=== PATIENT | female | born 1995 | race Two or more races ===

== ENCOUNTER 2022-12-29 13:51 | Outpatient (CLI) | payer OTHER | END 2022-12-29 15:14 | disposition home or self-care (01) | LOC: PRENATAL 13:51 | PROVIDERS: ATTEND Obstetrics & Gynecology Maternal & Fetal Medicine | DX: Z76.1 Encounter for health supervision and care of foundling (principal) ==

== ENCOUNTER 2023-04-19 06:39 | Emergency (ER) | payer OTHER ==
[~2023-04-19] VITALS: Ht 170.2 cm; Wt 68.0 kg
[2023-04-19] MEDS ORDERED: PRENATABS FA T1 EACH (07:10)
[2023-04-19] MEDS ORDERED: ENDOMETRIN100 MG (07:10)
== END 2023-04-19 10:35 | disposition home or self-care (01) ==
LOC: ER 06:39
DX: O20.8 Other hemorrhage in early pregnancy (principal); Z3A.13 13 weeks gestation of pregnancy; O20.9 Hemorrhage in early pregnancy, unspecified; Z91.040 Latex allergy status

== ENCOUNTER 2023-04-29 13:53 | Emergency (ER) | payer OTHER ==
[~2023-04-29] VITALS: Ht 170.2 cm; Wt 68.0 kg
[~2023-04-29 13:53] MED LIST: ENDOMETRIN100 MG; PRENATABS FA T1 EACH
== END 2023-04-29 18:04 | disposition home or self-care (01) ==
LOC: ER 13:53
DX: O20.8 Other hemorrhage in early pregnancy (principal); Z3A.09 9 weeks gestation of pregnancy

== ENCOUNTER 2023-05-26 09:53 | Outpatient (CLI) | payer OTHER | END 2023-05-26 12:45 | disposition home or self-care (01) | LOC: PRENATAL 09:53 | PROVIDERS: ATTEND Obstetrics & Gynecology Maternal & Fetal Medicine | DX: O36.80X0 Pregnancy with inconclusive fetal viability, not applicable or unspecified (principal); Z36.82 Encounter for antenatal screening for nuchal translucency; Z36.9 Encounter for antenatal screening, unspecified; O09.819 Supervision of pregnancy resulting from assisted reproductive technology, unspecified trimester; Z14.8 Genetic carrier of other disease; Z3A.12 12 weeks gestation of pregnancy ==

== ENCOUNTER 2023-07-12 14:03 | Outpatient (CLI) | payer OTHER | END 2023-07-12 14:04 | disposition home or self-care (01) | LOC: PRENATAL 14:03 | PROVIDERS: ATTEND Obstetrics & Gynecology Maternal & Fetal Medicine | DX: O35.3XX0 Maternal care for (suspected) damage to fetus from viral disease in mother, not applicable or unspecified (principal); O09.819 Supervision of pregnancy resulting from assisted reproductive technology, unspecified trimester; O44.00 Complete placenta previa NOS or without hemorrhage, unspecified trimester; Z3A.19 19 weeks gestation of pregnancy ==

== ENCOUNTER 2023-10-11 13:53 | Outpatient (CLI) | payer OTHER | END 2023-10-11 13:54 | disposition home or self-care (01) | LOC: PRENATAL 13:53 | PROVIDERS: ATTEND Obstetrics & Gynecology Maternal & Fetal Medicine | DX: O26.849 Uterine size-date discrepancy, unspecified trimester (principal); O36.8199 Decreased fetal movements, unspecified trimester, other fetus; O99.019 Anemia complicating pregnancy, unspecified trimester; Z3A.32 32 weeks gestation of pregnancy ==

== ENCOUNTER 2023-11-16 03:07 | Inpatient (IN) | payer OTHER ==
[~2023-11-16] VITALS: Ht 170.2 cm; Wt 84.8 kg
[2023-11-16] MEDS ORDERED: IRON240 MG PO (03:24)
[2023-11-16] MEDS ORDERED: RINGERS SOLUTION,LACTATED 1,000 ML IV SCH (03:30)
[2023-11-16 04:39] LABS: HEMATOCRIT 35.4 % (36.0-45.00); MEAN CELL VOLUME 73.2 fL (80.00-100.00); MEAN CORPUSCULAR HEMOGLOBIN 23.8 pg (27.00-32.0); MEAN CORPUSCULAR HGB CONC 32.5 g/dl (32.0-36.0); RED BLOOD COUNT 4.83 M/uL (4.00-6.00)
[2023-11-16 04:40] LABS: RED CELL DISTRIBUTION WIDTH 28.8 % (11.5-14.5)
[2023-11-16 04:41] LABS: HEMOGLOBIN 11.5 g/dL (12.0-15.00); PLATELET COUNT 152 K/uL (150-450)
[2023-11-16 04:50] LABS: INR < 0.93; PARTIAL THROMBOPLASTIN TIME 28.2 SECONDS (22.0-34.0); PROTHROMBIN TIME 9.7 SECONDS (9.0-11.5)
[2023-11-16] MEDS ORDERED: ERYTHROMYCIN BASE 3.5 GM OINT...G. OP ONE (06:44)
[2023-11-16] MEDS ORDERED: OXYTOCIN 10 UNITS/ML VIAL ONE ×2 (06:44→11:34)
[2023-11-16] MEDS ORDERED: MEPERIDINE HCL/PF 50 MG/ML VIAL IM PRN (07:30)
[2023-11-16] MEDS ORDERED: OXYTOCIN 1,000 ML IV SCH (07:30)
[2023-11-16] MEDS ORDERED: OXYTOCIN 10 UNITS/ML VIAL IV SCH (08:00)
[2023-11-16] MEDS ORDERED: ERYTHROMYCIN BASE 1 GM TUBE OP SCH (08:00)
[2023-11-16] MEDS ORDERED: FERROUS SULFAT325 MG (08:10)
[2023-11-16] MEDS ORDERED: PROMETHAZINE HCL 25 MG/ML AMPUL ONE (08:57)
[2023-11-16] MEDS ORDERED: PROMETHAZINE HCL 25 MG/ML AMPUL IM SCH (09:00)
[2023-11-16 10:00] LABS: HEMATOCRIT 33.6 % (36.0-45.00); HEMOGLOBIN 10.9 g/dL (12.0-15.00); MEAN CELL VOLUME 73.6 fL (80.00-100.00); MEAN CORPUSCULAR HGB CONC 32.6 g/dl (32.0-36.0); PLATELET COUNT 156 K/uL (150-450); RED BLOOD COUNT 4.56 M/uL (4.00-6.00)
[2023-11-16 10:04] LABS: RED CELL DISTRIBUTION WIDTH 28.4 % (11.5-14.5)
[2023-11-16] MEDS ORDERED: OXYTOCIN 1,000 ML IV ONE (16:15)
[2023-11-17] MEDS ORDERED: OxyCODONE HCL/APAP UD (PERCOCET) PO PRN (10:00)
== END 2023-11-19 16:22 | disposition home or self-care (01) | DRG 788 ==
LOC: OBS/DEL 03:07 → OB/GYN 05:44 → LDR 05:44 → O/R 07:14 → OB/GYN 08:42
PROVIDERS: ADMIT Obstetrics & Gynecology Obstetrics; ATTEND Obstetrics & Gynecology Obstetrics
PROC: 10D00Z1 Extraction of Products of Conception, Low, Open Approach (ICD-10-PCS; principal; 2023-11-19)
PROC: 4A1HXCZ Monitoring of Products of Conception, Cardiac Rate, External Approach (ICD-10-PCS; 2023-11-19)
DX: O45.8X3 Other premature separation of placenta, third trimester (principal); O67.8 Other intrapartum hemorrhage; Z3A.37 37 weeks gestation of pregnancy; Z37.0 Single live birth; Z20.822 Contact with and (suspected) exposure to COVID-19

== ENCOUNTER 2024-12-23 21:14 | Emergency (ER) | payer OTHER ==
[~2024-12-23] VITALS: Ht 170.2 cm; Wt 60.3 kg
[~2024-12-23 21:14] MED LIST changes: +FERROUS SULFAT325 MG; +IRON240 MG PO
[2024-12-23] MEDS ORDERED: 0.9 % SODIUM CHLORIDE 1,000 ML IV STA (23:29)
[2024-12-24 00:20] LABS: HEMATOCRIT 38.8 % (36.0-45.00); HEMOGLOBIN 13.1 g/dL (12.0-15.00); MEAN CELL VOLUME 78.1 fL (80.00-100.00); MEAN CORPUSCULAR HEMOGLOBIN 26.3 pg (27.00-32.0); MEAN CORPUSCULAR HGB CONC 33.7 g/dl (32.0-36.0); PLATELET COUNT 247 K/uL (150-450); RED BLOOD COUNT 4.98 M/uL (4.00-6.00); RED CELL DISTRIBUTION WIDTH 15.3 % (11.5-14.5)
[2024-12-24 00:40] LABS: INR 0.95; PARTIAL THROMBOPLASTIN TIME 24.8 SECONDS (22.0-34.0); PROTHROMBIN TIME 10.4 SECONDS (9.0-11.5)
[2024-12-24 00:58] LABS: BILIRUBIN TOTAL 0.3 mg/dL (0.3-1.2); CALCIUM 9.1 mg/dL (8.5-10.1); CREATININE SERUM 0.6 mg/dL (0.55-1.02); GFR 119.04; GLOBULINA 3.3 G/DL (2.4-3.5); POTASSIUM 4.11 mEq/L (3.5-5.1); TOTAL PROTEIN 7.3 gm/dL (6.4-8.2)
[2024-12-24] MEDS ORDERED: PRENATABS FA T1 EACH PO (02:36)
== END 2024-12-24 02:44 | disposition home or self-care (01) ==
LOC: ER 21:16
DX: O20.0 Threatened abortion (principal); Z91.040 Latex allergy status; Z3A.11 11 weeks gestation of pregnancy

== ENCOUNTER 2024-12-27 04:34 | Emergency (ER) | payer OTHER ==
[~2024-12-27] VITALS: Ht 170.2 cm; Wt 63.0 kg
[~2024-12-27 04:34] MED LIST changes: +PRENATABS FA T1 EACH PO
[2024-12-27] MEDS ORDERED: PROMETHAZINE HCL 50 MG/ML AMPUL IM STA (05:19)
[2024-12-27] MEDS ORDERED: FAMOTIDINE/PF 20 MG/2 ML VIAL IV PUSH STA (05:22)
[2024-12-27] MEDS ORDERED: LACTOBACILLUS ACIDOPHILUS 1 CAP CAP PO STA (05:22)
[2024-12-27] MEDS ORDERED: PROMETHAZINE HCL 50 MG/ML AMPUL IM ONE (05:23)
[2024-12-27] MEDS ORDERED: LACTOBACILLUS ACIDOPHILUS 1 CAP CAP PO ONE (05:24)
[2024-12-27] MEDS ORDERED: FAMOTIDINE/PF 20 MG/2 ML VIAL ONE (05:24)
[2024-12-27] MEDS ORDERED: DEXTROSE 5 % AND 0.9 % NACL 1,000 ML IV ONE (05:30)
[2024-12-27 06:22] LABS: HEMATOCRIT 38.6 % (36.0-45.00); HEMOGLOBIN 13.3 g/dL (12.0-15.00); MEAN CELL VOLUME 77.1 fL (80.00-100.00); MEAN CORPUSCULAR HEMOGLOBIN 26.6 pg (27.00-32.0); MEAN CORPUSCULAR HGB CONC 34.5 g/dl (32.0-36.0); PLATELET COUNT 214 K/uL (150-450); RED BLOOD COUNT 5.01 M/uL (4.00-6.00); RED CELL DISTRIBUTION WIDTH 15.2 % (11.5-14.5)
[2024-12-27 06:49] LABS: CREATININE SERUM 0.69 mg/dL (0.55-1.02); GFR 101.3; POTASSIUM 3.93 mEq/L (3.5-5.1)
[2024-12-27] MEDS ORDERED: ONDANSETRON ODT8 MG PO (09:29)
[2024-12-27] MEDS ORDERED: PEPCID AC20 MG PO (09:29)
== END 2024-12-27 09:45 | disposition home or self-care (01) ==
LOC: ER 04:35
PROVIDERS: General Practice
DX: O99.611 Diseases of the digestive system complicating pregnancy, first trimester (principal); K92.89 Other specified diseases of the digestive system; R19.7 Diarrhea, unspecified; O21.9 Vomiting of pregnancy, unspecified; Z3A.11 11 weeks gestation of pregnancy; Z91.040 Latex allergy status

== ENCOUNTER 2025-01-09 11:01 | Outpatient (CLI) | payer OTHER ==
[~2025-01-09 11:01] MED LIST changes: +ONDANSETRON ODT8 MG PO; +PEPCID AC20 MG PO
== END 2025-01-09 11:02 | disposition home or self-care (01) ==
LOC: PRENATAL 11:01
PROVIDERS: ATTEND Obstetrics & Gynecology Maternal & Fetal Medicine
DX: O36.80X0 Pregnancy with inconclusive fetal viability, not applicable or unspecified (principal); Z36.82 Encounter for antenatal screening for nuchal translucency; O34.219 Maternal care for unspecified type scar from previous cesarean delivery; O34.00 Maternal care for unspecified congenital malformation of uterus, unspecified trimester; Z3A.13 13 weeks gestation of pregnancy

== ENCOUNTER → 2025-02-20 08:28 | Outpatient (CLI) | payer OTHER | END | disposition home or self-care (01) | LOC: PRENATAL 08:28 | PROVIDERS: ATTEND Obstetrics & Gynecology Maternal & Fetal Medicine | DX: O44.00 Complete placenta previa NOS or without hemorrhage, unspecified trimester (principal); O34.219 Maternal care for unspecified type scar from previous cesarean delivery; O34.00 Maternal care for unspecified congenital malformation of uterus, unspecified trimester; O43.90 Unspecified placental disorder, unspecified trimester; Z14.8 Genetic carrier of other disease; Z3A.19 19 weeks gestation of pregnancy ==

== ENCOUNTER 2025-06-01 11:46 | Outpatient (CLI) | payer OTHER | END 2025-06-01 11:47 | disposition home or self-care (01) | LOC: PRENATAL 11:46 | PROVIDERS: ATTEND Obstetrics & Gynecology Maternal & Fetal Medicine | DX: O26.849 Uterine size-date discrepancy, unspecified trimester (principal); O36.8130 Decreased fetal movements, third trimester, not applicable or unspecified; O34.219 Maternal care for unspecified type scar from previous cesarean delivery; O34.00 Maternal care for unspecified congenital malformation of uterus, unspecified trimester; O43.90 Unspecified placental disorder, unspecified trimester; Z14.8 Genetic carrier of other disease; O99.019 Anemia complicating pregnancy, unspecified trimester; Z3A.34 34 weeks gestation of pregnancy ==

== ENCOUNTER 2025-06-26 20:58 | Inpatient (IN) | payer OTHER ==
[~2025-06-26] VITALS: Ht 152.4 cm; Wt 3.2 kg
[2025-06-26] MEDS ORDERED: OXYTOCIN 10 UNITS/ML VIAL ONE (21:09)
[2025-06-26] MEDS ORDERED: ERYTHROMYCIN BASE OPHT 1GM EACH TUBE OP ONE (21:09)
[2025-06-26 21:30] VITALS: BP 120/81
[2025-06-26] MEDS ORDERED: CEFAZOLIN SODIUM 1,000 MG VIAL ONE (21:45)
[2025-06-26 23:26] LABS: URINE APPEARANCE Clear; URINE BILIRRUBIN Negative (NEGATIVE); URINE BLOOD Negative; URINE COLOR Yellow; URINE GLUCOSE Negative (NEGATIVE); URINE KETONE Negative (NEGATIVE); URINE LEUKOCYTE Negative; URINE NITRATE Negative; URINE PROTEIN Negative (NEGATIVE); URINE UROBILINOGEN 0.2 E.U./dl
[2025-06-26 23:28] LABS: URINE BACTERIA 832.8 uL (0.0-1933); URINE EPITHELIAL CELLS 25.6 uL (0.0-38.8); URINE RBC 5.2 uL (0.0-20.8); URINE WBC 17.3 uL (0.0-23.2)
[2025-06-26 23:41] LABS: URINE CAST 0.14 uL (0.0-1.40)
[2025-06-26] MEDS ORDERED: OXYTOCIN 1,000 ML IV SCH (23:45)
[2025-06-26] MEDS ORDERED: RINGERS SOLUTION,LACTATED 1,000 ML IV SCH (23:45)
[2025-06-26] MEDS ORDERED: MORPHINE SULFATE 4 MG/ML CARTRIDGE IV PRN (23:45)
[2025-06-26] MEDS ORDERED: KETOROLAC TROMETHAMINE 30 MG VIAL IV NR (23:45)
[2025-06-26] MEDS ORDERED: CEFAZOLIN SODIUM 1,000 MG VIAL IV SCH (23:45)
[2025-06-26] MEDS ORDERED: ONDANSETRON HCL 2 MG/ML VIAL IV PRN (23:45)
[2025-06-26] MEDS ORDERED: PRENATA CHEWAB1 EACH PO (23:52)
[2025-06-26] MEDS ORDERED: VITAMIN C100 MG PO (23:52)
[2025-06-26] MEDS ORDERED: IRON236 MG (23:53)
[2025-06-27] MEDS ORDERED: KETOROLAC TROMETHAMINE 30 MG VIAL IV SCH
[2025-06-27 00:05] LABS: BASO % 0.3 % (0.1-1.2); EOS # 0.09 (0.04-0.54); EOS % 1.0 % (0.7-7.0); LYMPH # 1.84 (1.18-3.74); LYMPH % 20.2 % (19.3-53.1); MEAN PLATELET VOLUME 11.90 fl (9.4-12.4); MONO # 0.63 (0.24-0.82); MONO % 6.9 % (4.7-12.5); NEUT # 6.44 (1.56-6.13); NEUT % 70.9 % (34.0-71.1); RED CELL DISTRIBUTION WIDTH 19.7 % (11.6-14.4)
[2025-06-27 00:33] LABS: ALT/SGPT 18.0 U/L (12-78); AST/SGOT 17.0 U/L (15-37); BILIRUBIN TOTAL 0.22 mg/dL (0.3-1.2); BUN CREA RATIO 12.0 (7.0-25.0); CREATININE SERUM 0.6 mg/dL (0.55-1.02); GFR 119.04; GLOBULINA 3.8 G/DL (2.4-3.5); LDH 196.0 U/L (84-246); OSMOLALITY SERUM 275.0 MOSM/KG (275-295)
[2025-06-27 00:35] LABS: GLUCOSE FASTING 62.0 mg/dL (65-100)
[2025-06-27 01:28] LABS: INR < 0.93
[2025-06-27] MEDS ORDERED: OXYTOCIN 10 UNITS/ML VIAL ONE (01:40)
[2025-06-27 01:55] VITALS: BP 109/71
[2025-06-27 02:57] LABS: BASO % 0.3 % (0.1-1.2); EOS # 0.06 (0.04-0.54); EOS % 0.6 % (0.7-7.0); LYMPH # 1.33 (1.18-3.74); LYMPH % 12.5 % (19.3-53.1); MEAN PLATELET VOLUME 10.70 fl (9.4-12.4); MONO # 0.54 (0.24-0.82); MONO % 5.1 % (4.7-12.5); NEUT # 8.62 (1.56-6.13); NEUT % 80.9 % (34.0-71.1); RED CELL DISTRIBUTION WIDTH 19.3 % (11.6-14.4)
[2025-06-27 08:00] VITALS: BP 100/68
[2025-06-27] MEDS ORDERED: ACETAMINOPHEN 325 MG TABLET PO SCH (12:00)
[2025-06-27] MEDS ORDERED: SIMETHICONE 125 MG CAPSULE PO SCH (13:00)
[2025-06-27] MEDS ORDERED: ACYCLOVIR 400 MG TABLET PO SCH (13:00)
[2025-06-27 16:00] VITALS: BP 113/76
[2025-06-27] MEDS ORDERED: DOCUSATE SODIUM 100MG CAP PO SCH (17:00)
[2025-06-28 00:36] VITALS: BP 121/77
[2025-06-28 05:04] VITALS: BP 133/86
[2025-06-28] MEDS ORDERED: KETOROLAC TROMETHAMINE 60 MG VIAL IM ONE (05:15)
[2025-06-28] MEDS ORDERED: ORPHENADRINE CITRATE 30 MG/ML AMPUL IM ONE (05:15)
[2025-06-28 08:43] VITALS: BP 117/77
[2025-06-28] MEDS ORDERED: IRON FUM,PS/FOLIC ACID/VITC/B3 1 CAP CAPSULE PO SCH (09:00)
[2025-06-28 18:31] VITALS: BP 119/78
[2025-06-29 00:30] VITALS: BP 126/83
[2025-06-29 08:00] VITALS: BP 117/79
[2025-06-29] MEDS ORDERED: ZOVIRAX400 MG PO (16:02)
[2025-06-29] MEDS ORDERED: IBUPROFEN400 MG PO (16:02)
[2025-06-29] MEDS ORDERED: METRONIDAZOLE500 MG PO (16:02)
[2025-06-29] MEDS ORDERED: INTEGRA F CAPS1 EACH PO (16:02)
[2025-06-29] MEDS ORDERED: ACETAMINOPHEN325 M1 PO (16:02)
== END 2025-06-29 16:32 | disposition home or self-care (01) | DRG 788 ==
LOC: OB/GYN 20:58 → LDR 20:58 → OB/GYN 06-27 00:12
PROVIDERS: ADMIT General Practice; ATTEND General Practice
PROC: 10D00Z1 Extraction of Products of Conception, Low, Open Approach (ICD-10-PCS; principal; 2025-06-26)
PROC: 4A1HXCZ Monitoring of Products of Conception, Cardiac Rate, External Approach (ICD-10-PCS; 2025-06-26)
DX: O13.4 Gestational [pregnancy-induced] hypertension without significant proteinuria, complicating childbirth (principal); O34.211 Maternal care for low transverse scar from previous cesarean delivery; Z3A.37 37 weeks gestation of pregnancy; Z37.0 Single live birth